=== PATIENT | female | born 1960 | race Caucasian/White ===

== ENCOUNTER 2019-11-05 08:40 | Observation (INO) | payer OTHER ==
[2019-11-05] MEDS ORDERED: Albuterol/Ipratropium 3.0-0.5 MG/3 ML Neb Soln NEB ONE ×3 (08:51→09:45)
[2019-11-05] MEDS ORDERED: Magnesium Sulfate/Water 2 GM in Premix Bag 1 BAG IV ONE (09:03)
[2019-11-05] MEDS ORDERED: methylPREDNISolone Sodium Succinate 125 MG/2 ML SDV IVPUSH ONE (09:04)
--- NOTE | 2019-11-05 09:18 | EDM.PDOC ---
ED HPI GENERAL MEDICAL PROBLEM - General Chief Complaint: Respiratory Problem Stated Complaint: trouble breathin Time Seen by Provider: 11/05/19 09:16 Source of Information: Reports: Patient History Limitations: Reports: No Limitations - History of Present Illness INITIAL COMMENTS - FREE TEXT/NARRATIVE: Patient is a 59-year-old history of asthma and smoking presenting with chief complaint of shortness of breath. Patient states she started feeling this yesterday. Patient states she had a fall where she struck her right side. Patient is afraid that she might have fractured her ribs. Patient reports her shortness of breath worsened today. Patient states that she used her nebulizer at home without any relief. rePorts feeling extreme chest tightness. Symptoms did not improve with nebulizer treatment at home. Pmhx: Asthma Pshx: None Family Hx: noncontributory Smoking history? Yes Etoh use? none Drug use? none In addition to that documented in the HPI above, the additional ROS was obtained : Constitutional: Denies fevers or chills Eyes: Denies vision changes ENMT: Denies sore throat CV: Per HPI Resp: Per HPI GI: Denies vomiting or diarrhea : Denies painful urination MSK: Denies recent trauma Skin: Denies new rashes Neuro: Denies new numbness or tingling or weakness Endocrine: Denies unexpected weight loss Heme: Denies bleeding disorders I have reviewed the triage vital signs Const: In moderate distress gasping for air Eyes: PERRL, no conjunctival injection HENT: NCAT, Neck supple without meningismus CV: RRR, Warm, well-perfused extremities RESP: Increased respiratory effort using accessory muscles, mild diffuse wheezes GI: soft, non-tender, non-distended, no masses MSK: No gross deformities appreciated Skin: Warm, dry. No rashes Neuro: Alert, media clerk II-XII grossly intact. Sensation and motor function of extremities grossly intact. Psych: Appropriate mood and affect Assessment and plan: Patient is a 59-year-old female with asthma exacerbation and isolated rib fracture. Patient in respiratory distress upon arrival but slightly improved after given several rounds of duo nebs, Solu-Medrol, magnesium. Patient does have noted x-ray and is still wheezing. Patient will require observation stay for management of pain as well as continued treatments of albuterol for asthma exacerbation. right ribs, arm Pain Score (Numeric/FACES): 7 - Related Data Allergies Allergy/AdvReac Type Severity Reaction Status Date / Time codeine Allergy Hives Verified 11/05/19 08:47 Home Meds: Home Meds Albuterol Sulfate [Albuterol Sulfate Hfa] 1 - 2 puff INH Q4H PRN 11/05/19 [ History] Past Medical History Respiratory History: Reports: Asthma - Past Surgical History GI Surgical History: Reports: Hernia, Abdominal Social & Family History - Family History Family Medical History: Noncontributory - Tobacco Use Smoking Status *Q: Current Every Day Smoker Years of Tobacco use: 20 Packs/Tins Daily: 1 - Recreational Drug Use Recreational Drug Use: No ED ROS GENERAL - Review of Systems Review Of Systems: See Below ED EXAM, GENERAL - Physical Exam Exam: See Below Course - Vital Signs Last Recorded V/S: Last Vital Signs Temp 36.8 C 11/05/19 08:41 Pulse 100 11/05/19 08:41 Resp 24 H 11/05/19 09:04 BP 149/83 H 11/05/19 08:41 Pulse Ox 94 L 11/05/19 09:04 - Orders/Labs/Meds Orders: Active Orders 24 hr Category Date Time Status RT Aerosol Therapy [RC] ASDIRECTED Care 11/05/19 09:03 Active Medication Orders Acetaminophen (Tylenol) 650 mg PO Q4H PRN PRN Reason: Pain (Mild 1-3)/fever Albuterol/Ipratropium (Duoneb 3.0-0.5 Mg/3 Ml) 3 ml NEB Q4HRRT PRN PRN Reason: Dyspnea Docusate Sodium (Colace) 100 mg PO BID PRN PRN Reason: Constipation Enoxaparin Sodium (Lovenox) 40 mg SUBCUT Q24H [facility] Guaifenesin (Mucinex) 600 mg PO TID [facility] Levofloxacin/Dextrose 750 mg/ (Premix) 150 mls @ 100 mls/hr IV Q24H [facility] Ibuprofen (Motrin) 800 mg PO Q6H PRN PRN Reason: Pain (mild 1-3) Ketorolac Tromethamine (Toradol) 15 mg IV Q6H PRN PRN Reason: Pain (moderate 4-6) Methylprednisolone Sodium Succinate (Solu-Medrol) 40 mg IVPUSH Q12H [facility] Nicotine (Habitrol) 21 mg TRDERM DAILY PRN PRN Reason: Other Ondansetron HCl (Zofran Odt) 4 mg PO Q4H PRN PRN Reason: nausea, able to take PO Ondansetron HCl (Zofran) 4 mg IVPUSH Q4H PRN PRN Reason: Nausea Polyethylene Glycol (Miralax) 17 gm PO DAILY PRN PRN Reason: Constipation Labs: Laboratory Tests 11/05/19 11/05/19 11/05/19 Range/Units 08:48 08:48 08:48 WBC 11.91 H (4.0-11.0) K/uL RBC 5.23 (4.30-5.90) M/uL Hgb 16.0 (12.0-16.0) g/dL Hct 47.1 H (36.0-46.0) % MCV 90.1 (80.0-98.0) fL MCH 30.6 (27.0-32.0) pg MCHC 34.0 (31.0-37.0) g/dL RDW Std Deviation 42.5 (28.0-62.0) fl RDW Coeff of Aubrey 13 (11.0-15.0) % Plt Count 254 (150-400) K/uL MPV 10.00 (7.40-12.00) fL Neut % (Auto) 78.8 (48.0-80.0) % Lymph % (Auto) 9.5 L (16.0-40.0) % [place] % (Auto) 10.4 (0.0-15.0) % Eos % (Auto) 1.0 (0.0-7.0) % Baso % (Auto) 0.3 (0.0-1.5) % Neut # (Auto) 9.4 H (1.4-5.7) K/uL Lymph # (Auto) 1.1 (0.6-2.4) K/uL [place] # (Auto) 1.2 H (0.0-0.8) K/uL Eos # (Auto) 0.1 (0.0-0.7) K/uL Baso # (Auto) 0.0 (0.0-0.1) K/uL Nucleated RBC % 0.0 /100WBC Nucleated RBCs # 0 K/uL D-Dimer, Quantitative 0.25 (0.0-0.50) mg/L FEU Sodium 141 (136-145) mmol/L Potassium 4.2 (3.5-5.1) mmol/L Chloride 102 (98-107) mmol/L Carbon Dioxide 27.5 (21.0-32.0) mmol/L BUN 12 (7.0-18.0) mg/dL Creatinine 0.6 (0.6-1.0) mg/dL Est Cr Clr Drug Dosing 100.60 mL/min Estimated GFR (MDRD) > 60.0 ml/min Glucose 117 H (74-106) mg/dL Calcium 9.6 (8.5-10.1) mg/dL Total Bilirubin 0.5 (0.2-1.0) mg/dL AST 16 (15-37) IU/L ALT 28 (14-63) IU/L Alkaline Phosphatase 83 (46-116) U/L Troponin I < 0.050 (0.000-0.056) ng/mL B-Natriuretic Peptide (<100) PG/ML Total Protein 8.3 H (6.4-8.2) g/dL Albumin 4.1 (3.4-5.0) g/dL Globulin 4.2 H (2.6-4.0) g/dL Albumin/Globulin Ratio 1.0 (0.9-1.6) 11/05/19 Range/Units 08:48 WBC (4.0-11.0) K/uL RBC (4.30-5.90) M/uL Hgb (12.0-16.0) g/dL Hct (36.0-46.0) % MCV (80.0-98.0) fL MCH (27.0-32.0) pg MCHC (31.0-37.0) g/dL RDW Std Deviation (28.0-62.0) fl RDW Coeff of Aubrey (11.0-15.0) % Plt Count (150-400) K/uL MPV (7.40-12.00) fL Neut % (Auto) (48.0-80.0) % Lymph % (Auto) (16.0-40.0) % [place] % (Auto) (0.0-15.0) % Eos % (Auto) (0.0-7.0) % Baso % (Auto) (0.0-1.5) % Neut # (Auto) (1.4-5.7) K/uL Lymph # (Auto) (0.6-2.4) K/uL [place] # (Auto) (0.0-0.8) K/uL Eos # (Auto) (0.0-0.7) K/uL Baso # (Auto) (0.0-0.1) K/uL Nucleated RBC % /100WBC Nucleated RBCs # K/uL D-Dimer, Quantitative (0.0-0.50) mg/L FEU Sodium (136-145) mmol/L Potassium (3.5-5.1) mmol/L Chloride (98-107) mmol/L Carbon Dioxide (21.0-32.0) mmol/L BUN (7.0-18.0) mg/dL Creatinine (0.6-1.0) mg/dL Est Cr Clr Drug Dosing mL/min Estimated GFR (MDRD) ml/min Glucose (74-106) mg/dL Calcium (8.5-10.1) mg/dL Total Bilirubin (0.2-1.0) mg/dL AST (15-37) IU/L ALT (14-63) IU/L Alkaline Phosphatase (46-116) U/L Troponin I (0.000-0.056) ng/mL B-Natriuretic Peptide 44 (<100) PG/ML Total Protein (6.4-8.2) g/dL Albumin (3.4-5.0) g/dL Globulin (2.6-4.0) g/dL Albumin/Globulin Ratio (0.9-1.6) Meds: Medications Generic Name Dose Route Start Last Admin Trade Name Freq PRN Reason Stop Dose Admin Acetaminophen 650 mg 11/05/19 11:30 Tylenol PO Q4H PRN Pain (Mild 1-3)/fever Albuterol/Ipratropium 3 ml 11/05/19 11:38 Duoneb 3.0-0.5 Mg/3 Ml NEB Q4HRRT PRN Dyspnea Docusate Sodium 100 mg 11/05/19 11:30 Colace PO BID PRN Constipation Enoxaparin Sodium 40 mg 11/05/19 11:30 Lovenox SUBCUT Q24H [facility] Guaifenesin 600 mg 11/05/19 14:00 Mucinex PO TID [facility] Levofloxacin/Dextrose 750 mg/ 150 mls @ 100 mls/hr 11/05/19 11:45 Premix IV Q24H [facility] Ibuprofen 800 mg 11/05/19 11:30 Motrin PO Q6H PRN Pain (mild 1-3) Ketorolac Tromethamine 15 mg 11/05/19 11:30 Toradol IV Q6H PRN Pain (moderate 4-6) Methylprednisolone Sodium Succinate 40 mg 11/05/19 21:00 Solu-Medrol IVPUSH Q12H [facility] Nicotine 21 mg 11/05/19 11:34 Habitrol TRDERM DAILY PRN Other Ondansetron HCl 4 mg 11/05/19 11:30 Zofran Odt PO Q4H PRN nausea, able to take PO Ondansetron HCl 4 mg 11/05/19 11:30 Zofran IVPUSH Q4H PRN Nausea Polyethylene Glycol 17 gm 11/05/19 11:30 Miralax PO DAILY PRN Constipation Discontinued Medications Generic Name Dose Route Start Last Admin Trade Name Freq PRN Reason Stop Dose Admin Albuterol/Ipratropium 3 ml 11/05/19 08:51 11/05/19 08:54 Duoneb 3.0-0.5 Mg/3 Ml NEB 11/05/19 08:52 3 ml ONETIME ONE Administration Albuterol/Ipratropium 3 ml 11/05/19 09:03 11/05/19 09:05 Duoneb 3.0-0.5 Mg/3 Ml NEB 11/05/19 09:04 3 ml ONETIME ONE Administration Albuterol/Ipratropium 3 ml 11/05/19 09:45 11/05/19 09:58 Duoneb 3.0-0.5 Mg/3 Ml NEB 11/05/19 09:46 3 ml ONETIME ONE Administration Magnesium Sulfate 2 gm/ Premix 50 mls @ 50 mls/hr 11/05/19 09:03 11/05/19 09: 13 IV 11/05/19 10:02 50 mls/hr ONETIME ONE Administration Ketorolac Tromethamine 15 mg 11/05/19 11:02 11/05/19 11:43 Toradol IVPUSH 02/20/20 11:03 15 mg ONETIME ONE Administration Methylprednisolone Sodium Succinate 125 mg 11/05/19 09:04 11/05/19 09:13 Solu-Medrol IVPUSH 11/05/19 09:05 125 mg ONETIME ONE Administration Nicotine 21 mg 11/05/19 11:30 11/05/19 11:41 Habitrol TRDERM Not Given DAILY [facility] Departure - Departure Time of Disposition: 12:07 Disposition: Refer to Observation Clinical Impression: Exacerbation of asthma - Discharge Information Sepsis Event Note - Evaluation Sepsis Screening Result: No Definite Risk - Focused Exam Vital Signs: Vital Signs Temp Pulse Resp BP Pulse Ox Pulse Ox 11/05/19 09:04 24 H 94 L 11/05/19 08:54 94 L 11/05/19 08:51 94 L 11/05/19 08:41 36.8 C 100 36 H 149/83 H 89 L Date Exam was Performed: 11/05/19 Time Exam was Performed: 12:05 - My Orders Last 24 Hours: My Active Orders 11/05/19 09:03 RT Aerosol Therapy [RC] ASDIRECTED - Assessment/Plan Last 24 Hours: My Active Orders 11/05/19 09:03 RT Aerosol Therapy [RC] ASDIRECTED
[2019-11-05 09:34] LABS: BLOOD UREA NITROGEN,BUN 12 mg/dL (7.0-18.0); CARBON DIOXIDE,CO2 27.5 mmol/L (21.0-32.0); CHLORIDE,CL 102 mmol/L (98-107); GLUCOSE RANDOM 117 mg/dL (74-106); POTASSIUM,K 4.2 mmol/L (3.5-5.1); SODIUM,NA 141 mmol/L (136-145)
--- NOTE | 2019-11-05 09:35 | CR ---
Chest: Portable view of the chest was obtained. Comparison: No prior chest imaging. Heart size and mediastinum are normal. Lungs are clear. Fracture is noted within the left fifth rib posteriorly. Uncertain if this is acute or old. Please correlate with the patient's symptoms. No additional osseous abnormality is definitely appreciated. Impression: 1. Fracture within the left fifth rib posteriorly. Please correlate that patient is symptomatic to this area. 2. Nothing acute is otherwise seen on portable chest x-ray. Diagnostic code #3 This report was dictated in [place] Standard Time
[2019-11-05] MEDS ORDERED: Ketorolac 30 MG/ML SDV IVPUSH ONE (11:02)
[2019-11-05] MEDS ORDERED: Ondansetron 4 MG Tab.DIS PO PRN (11:30)
[2019-11-05] MEDS ORDERED: Polyethylene Glycol 3350 Powder 17 GM Packet PO PRN (11:30)
[2019-11-05] MEDS ORDERED: Ondansetron 4 MG/2 ML SDV IVPUSH PRN (11:30)
[2019-11-05] MEDS ORDERED: Acetaminophen 325 MG Tab PO PRN (11:30)
[2019-11-05] MEDS ORDERED: Nicotine 21 MG/24 Hr Patch TRDERM SCH (11:30)
[2019-11-05] MEDS ORDERED: Docusate Sodium 100 MG Cap PO PRN (11:30)
[2019-11-05] MEDS ORDERED: Ibuprofen 800 MG Tab PO PRN (11:30)
[2019-11-05] MEDS ORDERED: Nicotine 21 MG/24 Hr Patch TRDERM PRN (11:34)
[2019-11-05] MEDS ORDERED: Albuterol/Ipratropium 3.0-0.5 MG/3 ML Neb Soln NEB PRN (11:38)
--- NOTE | 2019-11-05 11:41 | PCM.HP.2 ---
H&P History of Present Illness - General Date of Service: 11/05/19 Admit Problem/Dx: Admission Diagnosis/Problem Admission Diagnosis/Problem Shortness of breath - History of Present Illness Initial Comments - Free Text/Narative: 59 y/o female who presented to the ER complaining of worsening shortness of breath since yesterday. States she fell at work and hit her right chest area. She has been having taking deep breaths due to right lower rib pain. Has been having productive cough. No fevers. Smokes 2 ppd. States she last had a cigarette about 2-3 days ago. No other sick contacts at home. No vomiting, abdominal pain, dysuria, diarrhea, blood in stool. In the ER, she was given Duoneb treatment, methylprednisolone. Chest xray showed left posterior 5th rib fracture. right ribs, arm Pain Score (Numeric/FACES): 7 - Related Data Allergies/Adverse Reactions: Allergies Allergy/AdvReac Type Severity Reaction Status Date / Time codeine Allergy Hives Verified 11/05/19 08:47 Home Medications: Home Meds Albuterol Sulfate [Albuterol Sulfate Hfa] 1 - 2 puff INH Q4H PRN 11/05/19 [ History] Past Medical History Respiratory History: Reports: Asthma - Past Surgical History GI Surgical History: Reports: Hernia, Abdominal Social & Family History - Family History Family Medical History: Noncontributory - Tobacco Use Smoking Status *Q: Current Every Day Smoker Years of Tobacco use: 20 Packs/Tins Daily: 1 - Recreational Drug Use Recreational Drug Use: No H&P Review of Systems - Review of Systems: Review Of Systems: Comprehensive ROS is negative, except as noted in HPI. Exam - Exam Exam: See Below - Vital Signs Vital Signs: Last Vital Signs Temp 36.8 C 11/05/19 08:41 Pulse 100 11/05/19 08:41 Resp 24 H 11/05/19 09:04 BP 149/83 H 11/05/19 08:41 Pulse Ox 94 L 11/05/19 09:04 Weight: 90.718 kg - Exam Quality Assessment: Supplemental Oxygen General: Alert, Oriented, Cooperative HEENT: Other (dry oral mucosa) Lungs: Other (barrel chested, prolonged inspiratory and expiratory phases. no wheesing. rhonchi bilaterally.) Cardiovascular: Regular Rate, Regular Rhythm Back Exam: Other (tenderness on posterior back area on left and right sided ribs. No contussion seen.) Skin: Warm Neuro Extensive - Mental Status: Alert, Oriented x3 - Patient Data Lab Results Last 24 hrs: Laboratory Results - last 24 hr 11/05/19 11/05/19 11/05/19 Range/Units 08:48 08:48 08:48 WBC 11.91 H (4.0-11.0) K/uL RBC 5.23 (4.30-5.90) M/uL Hgb 16.0 (12.0-16.0) g/dL Hct 47.1 H (36.0-46.0) % MCV 90.1 (80.0-98.0) fL MCH 30.6 (27.0-32.0) pg MCHC 34.0 (31.0-37.0) g/dL RDW Std Deviation 42.5 (28.0-62.0) fl RDW Coeff of Aubrey 13 (11.0-15.0) % Plt Count 254 (150-400) K/uL MPV 10.00 (7.40-12.00) fL Neut % (Auto) 78.8 (48.0-80.0) % Lymph % (Auto) 9.5 L (16.0-40.0) % [place] % (Auto) 10.4 (0.0-15.0) % Eos % (Auto) 1.0 (0.0-7.0) % Baso % (Auto) 0.3 (0.0-1.5) % Neut # (Auto) 9.4 H (1.4-5.7) K/uL Lymph # (Auto) 1.1 (0.6-2.4) K/uL [place] # (Auto) 1.2 H (0.0-0.8) K/uL Eos # (Auto) 0.1 (0.0-0.7) K/uL Baso # (Auto) 0.0 (0.0-0.1) K/uL Nucleated RBC % 0.0 /100WBC Nucleated RBCs # 0 K/uL D-Dimer, Quantitative 0.25 (0.0-0.50) mg/L FEU Sodium 141 (136-145) mmol/L Potassium 4.2 (3.5-5.1) mmol/L Chloride 102 (98-107) mmol/L Carbon Dioxide 27.5 (21.0-32.0) mmol/L BUN 12 (7.0-18.0) mg/dL Creatinine 0.6 (0.6-1.0) mg/dL Est Cr Clr Drug Dosing 100.60 mL/min Estimated GFR (MDRD) > 60.0 ml/min Glucose 117 H (74-106) mg/dL Calcium 9.6 (8.5-10.1) mg/dL Total Bilirubin 0.5 (0.2-1.0) mg/dL AST 16 (15-37) IU/L ALT 28 (14-63) IU/L Alkaline Phosphatase 83 (46-116) U/L Troponin I < 0.050 (0.000-0.056) ng/mL B-Natriuretic Peptide (<100) PG/ML Total Protein 8.3 H (6.4-8.2) g/dL Albumin 4.1 (3.4-5.0) g/dL Globulin 4.2 H (2.6-4.0) g/dL Albumin/Globulin Ratio 1.0 (0.9-1.6) 11/05/19 Range/Units 08:48 WBC (4.0-11.0) K/uL RBC (4.30-5.90) M/uL Hgb (12.0-16.0) g/dL Hct (36.0-46.0) % MCV (80.0-98.0) fL MCH (27.0-32.0) pg MCHC (31.0-37.0) g/dL RDW Std Deviation (28.0-62.0) fl RDW Coeff of Aubrey (11.0-15.0) % Plt Count (150-400) K/uL MPV (7.40-12.00) fL Neut % (Auto) (48.0-80.0) % Lymph % (Auto) (16.0-40.0) % [place] % (Auto) (0.0-15.0) % Eos % (Auto) (0.0-7.0) % Baso % (Auto) (0.0-1.5) % Neut # (Auto) (1.4-5.7) K/uL Lymph # (Auto) (0.6-2.4) K/uL [place] # (Auto) (0.0-0.8) K/uL Eos # (Auto) (0.0-0.7) K/uL Baso # (Auto) (0.0-0.1) K/uL Nucleated RBC % /100WBC Nucleated RBCs # K/uL D-Dimer, Quantitative (0.0-0.50) mg/L FEU Sodium (136-145) mmol/L Potassium (3.5-5.1) mmol/L Chloride (98-107) mmol/L Carbon Dioxide (21.0-32.0) mmol/L BUN (7.0-18.0) mg/dL Creatinine (0.6-1.0) mg/dL Est Cr Clr Drug Dosing mL/min Estimated GFR (MDRD) ml/min Glucose (74-106) mg/dL Calcium (8.5-10.1) mg/dL Total Bilirubin (0.2-1.0) mg/dL AST (15-37) IU/L ALT (14-63) IU/L Alkaline Phosphatase (46-116) U/L Troponin I (0.000-0.056) ng/mL B-Natriuretic Peptide 44 (<100) PG/ML Total Protein (6.4-8.2) g/dL Albumin (3.4-5.0) g/dL Globulin (2.6-4.0) g/dL Albumin/Globulin Ratio (0.9-1.6) Result Diagrams: 11/05/19 08:48 11/05/19 08:48 Sepsis Event Note - Evaluation Sepsis Screening Result: No Definite Risk - Focused Exam Vital Signs: Vital Signs Temp Pulse Resp BP Pulse Ox Pulse Ox 11/05/19 09:04 24 H 94 L 11/05/19 08:54 94 L 11/05/19 08:51 94 L 11/05/19 08:41 36.8 C 100 36 H 149/83 H 89 L Date Exam was Performed: 11/05/19 Time Exam was Performed: 11:41 Problem List Initiated/Reviewed/Updated: Yes Orders Last 24hrs: Active Orders 24 hr Category Date Time Status Admission Status [Patient Status] [ADT] Stat ADT 11/05/19 11:02 Active Intake and Output [RC] QSHIFT Care 11/05/19 11:30 Active Oxygen Therapy [RC] PRN Care 11/05/19 11:30 Active RT Aerosol Therapy [RC] ASDIRECTED Care 11/05/19 09:03 Active RT Aerosol Therapy [RC] ASDIRECTED Care 11/05/19 11:38 Active Up ad Angelique [RC] ASDIRECTED Care 11/05/19 11:30 Active VTE/DVT Education [RC] PER UNIT ROUTINE Care 11/05/19 11:30 Active Vital Signs [RC] Q4H Care 11/05/19 11:30 Active Regular Diet [DIET] Diet 11/05/19 Lunch Active INFLUENZA A+B AG SCREEN [RM] Routine Lab 11/05/19 11:39 Ordered Acetaminophen [Tylenol] Med 11/05/19 11:30 Active 650 mg PO Q4H PRN Albuterol/Ipratropium [DuoNeb 3.0-0.5 MG/3 ML] Med 11/05/19 11:38 Active 3 ml NEB Q4HRRT PRN Docusate Sodium [Colace] Med 11/05/19 11:30 Active 100 mg PO BID PRN Enoxaparin [Lovenox] Med 11/05/19 11:30 Active 40 mg SUBCUT Q24H Ibuprofen [Motrin] Med 11/05/19 11:30 Active 800 mg PO Q6H PRN Ketorolac [Toradol] Med 11/05/19 11:30 Active 15 mg IV Q6H PRN Levofloxacin/Dextrose 5%-Water [Levaquin in D5W 750 MG/ Med 11/05/19 11:45 Active 150 ML] 750 mg Premix Bag 1 bag IV Q24H Nicotine [Habitrol] Med 11/05/19 11:34 Active 21 mg TRDERM DAILY PRN Ondansetron [Zofran ODT] Med 11/05/19 11:30 Active 4 mg PO Q4H PRN Ondansetron [Zofran] Med 11/05/19 11:30 Active 4 mg IVPUSH Q4H PRN guaiFENesin [Mucinex] Med 11/05/19 14:00 Active 600 mg PO TID methylPREDNISolone Sod Succ [Solu-MEDROL] Med 11/05/19 21:00 Active 40 mg IVPUSH Q12H polyethylene glycoL 3350 [MiraLAX] Med 11/05/19 11:30 Active 17 gm PO DAILY PRN Resuscitation Status Routine Resus Stat 11/05/19 11:30 Ordered Medication Orders Acetaminophen (Tylenol) 650 mg PO Q4H PRN PRN Reason: Pain (Mild 1-3)/fever Albuterol/Ipratropium (Duoneb 3.0-0.5 Mg/3 Ml) 3 ml NEB Q4HRRT PRN PRN Reason: Dyspnea Docusate Sodium (Colace) 100 mg PO BID PRN PRN Reason: Constipation Enoxaparin Sodium (Lovenox) 40 mg SUBCUT Q24H [facility] Guaifenesin (Mucinex) 600 mg PO TID [facility] Levofloxacin/Dextrose 750 mg/ (Premix) 150 mls @ 100 mls/hr IV Q24H [facility] Ibuprofen (Motrin) 800 mg PO Q6H PRN PRN Reason: Pain (mild 1-3) Ketorolac Tromethamine (Toradol) 15 mg IV Q6H PRN PRN Reason: Pain (moderate 4-6) Methylprednisolone Sodium Succinate (Solu-Medrol) 40 mg IVPUSH Q12H [facility] Nicotine (Habitrol) 21 mg TRDERM DAILY PRN PRN Reason: Other Ondansetron HCl (Zofran Odt) 4 mg PO Q4H PRN PRN Reason: nausea, able to take PO Ondansetron HCl (Zofran) 4 mg IVPUSH Q4H PRN PRN Reason: Nausea Polyethylene Glycol (Miralax) 17 gm PO DAILY PRN PRN Reason: Constipation Assessment/Plan Comment:: A: 1. Acute hypoxic respiratory failure, likely 2/2 to COPD exacerbation. 2. Pleuritic chest pain 3. Tobacco abuse P: 1. Will treat for acute COPD exacerbation with methylprednisolone, Levaquin and Duonebs PRN. Will check influenza. Pain control for pleurisy, left rib fracture. Nicotine patch PRN. Dispo: 1-2 days.
[2019-11-05] MEDS: Enoxaparin 40 MG/0.4 ML Syringe SUBCUT SCH (12:53)
[2019-11-05] MEDS: Levofloxacin/Dextrose 5%-Water 750 MG in Premix Bag 1 BAG IV SCH (13:01)
[2019-11-05] MEDS: guaiFENesin 600 MG Tab.ER PO SCH ×2 (14:09→21:05)
[2019-11-05] MEDS: Ketorolac 30 MG/ML SDV IV PRN ×2 (17:35→23:56)
[2019-11-05] MEDS: methylPREDNISolone Sodium Succinate 40 MG/1 ML SDV IVPUSH SCH (20:57)
[2019-11-06] MEDS: guaiFENesin 600 MG Tab.ER PO SCH (06:35)
[2019-11-06] MEDS: Ketorolac 30 MG/ML SDV IV PRN ×2 (06:39→12:24)
[2019-11-06 06:49] LABS: BLOOD UREA NITROGEN,BUN 19 mg/dL (7.0-18.0); CARBON DIOXIDE,CO2 26.3 mmol/L (21.0-32.0); CHLORIDE,CL 103 mmol/L (98-107); GLUCOSE RANDOM 193 mg/dL (74-106); POTASSIUM,K 4.3 mmol/L (3.5-5.1); SODIUM,NA 140 mmol/L (136-145)
[2019-11-06] MEDS: methylPREDNISolone Sodium Succinate 40 MG/1 ML SDV IVPUSH SCH (09:19)
[2019-11-06] MEDS: Enoxaparin 40 MG/0.4 ML Syringe SUBCUT SCH (11:19)
[2019-11-06] MEDS: Levofloxacin/Dextrose 5%-Water 750 MG in Premix Bag 1 BAG IV SCH (11:22)
--- NOTE | 2019-11-06 15:07 | PCM.DCSUM1 ---
Discharge Summary - Hospital Course Free Text/Narrative:: 59 y/o female who presented to the ER complaining of worsening shortness of breath. She was admitted for suspected acute COPD exacerbation. She was started on Levaquin IV, methylprednisolone and Duoneb treatments. In addition, she was found to have a left posterior 5th rib fracture. She did relatively well during this hospitalization. She was discharged home the following day on Levaquin, prednisone, albuterol and tramadol for pain control. In addition, she was prescribed home oxygen since she needed oxygen with ambulation. She was advised to follow-up with her PCP and abstain from tobacco. She will need outpatient PFTs to further evaluate her pulmonary function due to history of tobacco use. - Discharge Data Discharge Date: 11/06/19 Discharge Disposition: Home, Self-Care 01 Condition: Good - Referral to Home Health Primary Care Physician: PCP None - Patient Instructions Diet: Regular Diet as Tolerated Activity: As Tolerated Notify Provider of: Fever, Increased Pain, Swelling and Redness, Nausea and/or Vomiting - Discharge Plan *PRESCRIPTION DRUG MONITORING PROGRAM REVIEWED*: Not Applicable *COPY OF PRESCRIPTION DRUG MONITORING REPORT IN PATIENT SHERIE: Not Applicable Prescriptions/Med Rec: Albuterol Sulfate [Albuterol Sulfate Hfa] 8.5 gm IH Q4H PRN #1 hfa.aer.ad PRN Reason: Wheezing Levofloxacin [Levaquin] 750 mg PO DAILY 5 Days #5 tablet Nicotine [Habitrol] 21 mg TRDERM DAILY 30 Days #30 patch predniSONE [Prednisone] 20 mg PO DAILY 5 Days #5 tablet traMADol [Ultram] 50 mg PO TID PRN #10 tablet PRN Reason: Pain Home Medications: Home Meds Albuterol Sulfate [Albuterol Sulfate Hfa] 8.5 gm IH Q4H PRN #1 hfa.aer.ad [Rx] Levofloxacin [Levaquin] 750 mg PO DAILY 5 Days #5 tablet 11/06/19 [Rx] Nicotine [Habitrol] 21 mg TRDERM DAILY 30 Days #30 patch 11/06/19 [Rx] predniSONE [Prednisone] 20 mg PO DAILY 5 Days #5 tablet 11/06/19 [Rx] traMADol [Ultram] 50 mg PO TID PRN #10 tablet 11/06/19 [Rx] Oxygen Therapy Mode: Nasal Cannula, Oxygen Conserving Oxygen Flow Rate (L/min): 1.5 Patient Handouts: Tramadol tablets, Asthma, Adult, [id number], Levofloxacin tablets, Nicotine skin patches, Prednisone tablets, Rib Fracture, [id number], Albuterol tablets or extended-release tablets Referrals: Angus Schwarz MD [Resident] - 11/19/19 2:00 pm - Discharge Summary/Plan Comment DC Time >30 min.: No - Patient Data Vitals - Most Recent: Last Vital Signs Temp 36.7 C 11/06/19 11:58 Pulse 86 11/06/19 07:00 Resp 24 H 11/06/19 11:58 BP 142/86 H 11/06/19 11:58 Pulse Ox 93 L 11/06/19 11:58 Weight - Most Recent: 97 kg I&O - Last 24 hours: Intake & Output 11/06/19 11/06/19 11/06/19 06:59 14:59 22:59 Intake Total 680 Output Total 600 Balance 80 Lab Results - Last 24 hrs: Laboratory Results - last 24 hr 11/06/19 11/06/19 Range/Units 06:16 06:16 WBC 17.77 H (4.0-11.0) K/uL RBC 4.79 (4.30-5.90) M/uL Hgb 14.2 (12.0-16.0) g/dL Hct 42.7 (36.0-46.0) % MCV 89.1 (80.0-98.0) fL MCH 29.6 (27.0-32.0) pg MCHC 33.3 (31.0-37.0) g/dL RDW Std Deviation 40.7 (28.0-62.0) fl RDW Coeff of Aubrey 13 (11.0-15.0) % Plt Count 268 (150-400) K/uL MPV 9.70 (7.40-12.00) fL Neut % (Auto) 91.0 H (48.0-80.0) % Lymph % (Auto) 4.3 L (16.0-40.0) % [place] % (Auto) 4.7 (0.0-15.0) % Eos % (Auto) 0.0 (0.0-7.0) % Baso % (Auto) 0.0 (0.0-1.5) % Neut # (Auto) 16.2 H (1.4-5.7) K/uL Lymph # (Auto) 0.8 (0.6-2.4) K/uL [place] # (Auto) 0.8 (0.0-0.8) K/uL Eos # (Auto) 0.0 (0.0-0.7) K/uL Baso # (Auto) 0.0 (0.0-0.1) K/uL Nucleated RBC % 0.0 /100WBC Nucleated RBCs # 0 K/uL Sodium 140 (136-145) mmol/L Potassium 4.3 (3.5-5.1) mmol/L Chloride 103 (98-107) mmol/L Carbon Dioxide 26.3 (21.0-32.0) mmol/L BUN 19 H (7.0-18.0) mg/dL Creatinine 0.6 (0.6-1.0) mg/dL Est Cr Clr Drug Dosing 104.35 mL/min Estimated GFR (MDRD) > 60.0 ml/min Glucose 193 H (74-106) mg/dL Calcium 9.2 (8.5-10.1) mg/dL Total Bilirubin 0.4 (0.2-1.0) mg/dL AST 9 L (15-37) IU/L ALT 23 (14-63) IU/L Alkaline Phosphatase 68 (46-116) U/L Total Protein 7.2 (6.4-8.2) g/dL Albumin 3.4 (3.4-5.0) g/dL Globulin 3.8 (2.6-4.0) g/dL Albumin/Globulin Ratio 0.9 (0.9-1.6) NONA Results - Last 24 hrs: Microbiology 11/05/19 12:40 Influenza Type A Antigen Screen - Final Nasopharyngeal Swab NEGATIVE INFLUENZA A VIRUS AG REFERENCE RANGE: NEGATIVE Influenza Type B Antigen Screen - Final NEGATIVE INFLUENZA B VIRUS AG REFERENCE RANGE: NEGATIVE Med Orders - Current: Current Medications Acetaminophen (Tylenol) 650 mg PO Q4H PRN PRN Reason: Pain (Mild 1-3)/fever Albuterol/Ipratropium (Duoneb 3.0-0.5 Mg/3 Ml) 3 ml NEB Q4HRRT PRN PRN Reason: Dyspnea Last Admin: 11/06/19 00:01 Dose: 3 ml Docusate Sodium (Colace) 100 mg PO BID PRN PRN Reason: Constipation Enoxaparin Sodium (Lovenox) [address] [facility] Last Admin: 11/06/19 11:19 Dose: 40 mg Guaifenesin (Mucinex) [address] [facility] Last Admin: 11/06/19 06:35 Dose: 600 mg Levofloxacin/Dextrose 750 mg/ (Premix) 150 mls @ 100 mls/hr IV Q24H [facility] Last Admin: 11/06/19 11:22 Dose: 100 mls/hr Ibuprofen (Motrin) 800 mg PO Q6H PRN PRN Reason: Pain (mild 1-3) Ketorolac Tromethamine (Toradol) 15 mg IV Q6H PRN PRN Reason: Pain (moderate 4-6) Last Admin: 11/06/19 12:24 Dose: 15 mg Methylprednisolone Sodium Succinate (Solu-Medrol) [address] [facility] Last Admin: 11/06/19 09:19 Dose: 40 mg Nicotine (Habitrol) 21 mg TRDERM DAILY PRN PRN Reason: Other Last Admin: 11/05/19 14:10 Dose: 21 mg Ondansetron HCl (Zofran Odt) 4 mg PO Q4H PRN PRN Reason: nausea, able to take PO Ondansetron HCl (Zofran) 4 mg IVPUSH Q4H PRN PRN Reason: Nausea Polyethylene Glycol (Miralax) 17 gm PO DAILY PRN PRN Reason: Constipation Discontinued Medications Albuterol/Ipratropium (Duoneb 3.0-0.5 Mg/3 Ml) 3 ml NEB ONETIME ONE Stop: 11/05/19 08:52 Last Admin: 11/05/19 08:54 Dose: 3 ml Albuterol/Ipratropium (Duoneb 3.0-0.5 Mg/3 Ml) 3 ml NEB ONETIME ONE Stop: 11/05/19 09:04 Last Admin: 11/05/19 09:05 Dose: 3 ml Albuterol/Ipratropium (Duoneb 3.0-0.5 Mg/3 Ml) 3 ml NEB ONETIME ONE Stop: 11/05/19 09:46 Last Admin: 11/05/19 09:58 Dose: 3 ml Magnesium Sulfate 2 gm/ Premix 50 mls @ 50 mls/hr IV ONETIME ONE Stop: 11/05/19 10:02 Last Admin: 11/05/19 09:13 Dose: 50 mls/hr Ketorolac Tromethamine (Toradol) 15 mg IVPUSH ONETIME ONE Stop: 11/05/19 11:03 Last Admin: 11/05/19 11:43 Dose: 15 mg Methylprednisolone Sodium Succinate (Solu-Medrol) 125 mg IVPUSH ONETIME ONE Stop: 11/05/19 09:05 Last Admin: 11/05/19 09:13 Dose: 125 mg Nicotine (Habitrol) [address] [facility] Last Admin: 11/05/19 11:41 Dose: Not Given
== END 2019-11-06 14:00 | disposition home or self-care (01) ==
LOC: MW.ED 08:40 → MW.MS 11:02
PROVIDERS: ADMIT Internal Medicine; ATTEND Internal Medicine
DX: J96.01 Acute respiratory failure with hypoxia (principal); J44.1 Chronic obstructive pulmonary disease with (acute) exacerbation; R07.81 Pleurodynia; S22.32XA Fracture of one rib, left side, initial encounter for closed fracture; F17.210 Nicotine dependence, cigarettes, uncomplicated; Z88.5 Allergy status to narcotic agent; Z99.81 Dependence on supplemental oxygen; Z79.899 Other long term (current) drug therapy; W19.XXXA Unspecified fall, initial encounter; Y99.0 Civilian activity done for income or pay
CPT/HCPCS: 36415; 71045; 80053; 83036; 83880; 84443; 84484; 85025; 85379; 87804; 93005; 94640; 96365; 96367; 96372; 96375; 96376; 99285; A9270; G0378; J1650; J1885; J1956; J2920; J2930; J3475; J7620-GY

== ENCOUNTER 2021-01-17 06:43 | Day surgery (SDC) | payer MEDICAID ==
[~2021-01-17 06:43] MED LIST: Lactated Ringers 1,000 ML IV SCH; Sodium Chloride 0.9% 10 ML SDV IV PRN; Sodium Chloride 0.9% 10 ML Syringe FLUSH PRN; Sodium Chloride 0.9% 2.5 ML Syringe FLUSH PRN; ceFAZolin 2 GM in Premix Bag 1 BAG IV ONE
[2021-01-17] MEDS ORDERED: Ondansetron 4 MG/2 ML SDV ONE (07:19)
[2021-01-17] MEDS ORDERED: Lidocaine 2% 5 ML SDV ONE (07:19)
[2021-01-17] MEDS ORDERED: Propofol 200 MG/20 ML SDV ONE ×2 (07:20→08:16)
[2021-01-17] MEDS ORDERED: fentaNYL 100 MCG/2 ML SDV ONE (07:20)
[2021-01-17] MEDS ORDERED: Midazolam 1 MG/ML 2 ML SDV ONE (07:20)
--- NOTE | 2021-01-17 07:23 | PCM.PREANE ---
Preanesthetic Assessment - Anesthesia/Transfusion/Family Hx Anesthesia History: Prior Anesthesia Without Reaction Family History of Anesthesia Reaction: No Transfusion History: No Prior Transfusion(s) Intubation History: Unknown - Review of Systems General: No Symptoms Pulmonary: No Symptoms Cardiovascular: No Symptoms Gastrointestinal: No Symptoms Neurological: No Symptoms Other: Reports: None - Physical Assessment NPO Status Date: 01/17/21 NPO Status Time: 00:01 Vital Signs: Last Vital Signs Temp 98.2 F 01/17/21 06:50 Pulse 82 01/17/21 06:50 Resp 15 01/17/21 06:50 BP 143/86 H 01/17/21 06:50 Pulse Ox 95 01/17/21 06:50 Height: 5 ft 8 in Weight: 215 lb ASA Class: 2 Mental Status: Alert & Oriented x3 Airway Class: Mallampati = 2 Dentition: Reports: Normal Dentition, Missing Tooth/Teeth ROM/Head Extension: Limited/Partial Lungs: Clear to Auscultation, Normal Respiratory Effort Cardiovascular: Regular Rate, Regular Rhythm - Allergies Allergies/Adverse Reactions: Allergies Allergy/AdvReac Type Severity Reaction Status Date / Time codeine Allergy Rash Verified 01/11/21 12:11 - Anesthesia Plan Pre-Op Medication Ordered: None - Acknowledgements Anesthesia Type Planned: General Anesthesia Pt an Appropriate Candidate for the Planned Anesthesia: Yes Alternatives and Risks of Anesthesia Discussed w Pt/Guardian: Yes Pt/Guardian Understands and Agrees with Anesthesia Plan: Yes Additional Comments: npo after mn edentulous hx met abuse tob 1 ppd etoh none obesity bmi 33 cervical CA copd daily inhalers NEWHALEN par no questions no cv problems PreAnesthesia Questionnaire HEENT History: Reports: Hard of Hearing, Other (See Below) Other HEENT History: uses reading glasses, has upper and lower dentures, may have hearing aides but doesn't wear them Cardiovascular History: Reports: Other (See Below) Other Cardiovascular History: hx of rheumatic fever as a child- ? murmur Respiratory History: Reports: COPD Other Respiratory History: recently started inhalers Gastrointestinal History: Reports: None Other Gastrointestinal History: occasional heartburn- no medications Genitourinary History: Reports: None GENERAL TECHNICIAN History: Reports: Musculoskeletal History: Reports: None Other Musculoskeletal History: hx of fx rib and right elbow (not treated) Neurological History: Reports: None Psychiatric History: Reports: None Endocrine/Metabolic History: Reports: Obesity/BMI 30+ Hematologic History: Reports: None Immunologic History: Reports: None Oncologic (Cancer) History: Reports: Cervix Dermatologic History: Reports: None - Infectious Disease History Infectious Disease History: Reports: Chicken Pox, Measles - Past Surgical History Head Surgeries/Procedures: Reports: None Cardiovascular Surgical History: Reports: None Respiratory Surgical History: Reports: None GI Surgical History: Reports: Hernia, Abdominal Other GI Surgeries/Procedures: hx of Ventral Hernia repair Female Surgical History: Reports: Tubal Ligation Neurological Surgical History: Reports: None Musculoskeletal Surgical History: Reports: None Oncologic Surgical History: Reports: None - SUBSTANCE USE Tobacco Use Status *Q: Current Every Day Tobacco User Tobacco Use Within Last Twelve Months: Cigarettes Recreational Drug Use History: Yes Recreational Drug Type: Reports: Methamphetamine - HOME MEDS Home Medications: Home Meds Albuterol Sulfate [Albuterol Sulfate HFA] 1 puff INH ASDIRECTED PRN 01/11/21 [History] Albuterol/Ipratropium [Combivent Respimat] 1 puff INH ASDIRECTED 01/11/21 [History] - CURRENT (IN HOUSE) MEDS Current Meds: Current Medications Lactated Ringer's (Ringers, Lactated) 1,000 mls @ 125 mls/hr IV ASDIRECTED WILIAN Last Admin: 01/17/21 07:06 Dose: 125 mls/hr Documented by: Sodium Chloride (Sodium Chloride 0.9% 2.5 Ml Syringe) 2.5 ml FLUSH ASDIRECTED PRN PRN Reason: Keep Vein Open Sodium Chloride (Sodium Chloride 0.9% 10 Ml Sdv) 10 ml IV ASDIRECTED PRN PRN Reason: IV Use Sodium Chloride (Sodium Chloride 0.9% 10 Ml Syringe) 10 ml FLUSH ASDIRECTED PRN PRN Reason: Keep Vein Open Discontinued Medications Cefazolin Sodium/Dextrose 2 gm (/ Premix) 50 mls @ 100 mls/hr IV ONETIME ONE Stop: 01/16/21 10:27
[2021-01-17] MEDS ORDERED: Bupivacaine 0.5% 10 ML SDV ONE (07:33)
[2021-01-17] MEDS ORDERED: Iopamidol 408 MG/ML 20 ML SDV ONE (07:34)
[2021-01-17] MEDS ORDERED: Lidocaine 1% 20 ML MDV ONE (07:34)
[2021-01-17] MEDS ORDERED: Heparin Sodium 100 Units/ML 3 ML Syringe ONE (07:34)
[2021-01-17] MEDS ORDERED: fentaNYL 100 MCG/2 ML SDV IVPUSH PRN (08:21)
[2021-01-17] MEDS ORDERED: Ketorolac 30 MG/ML SDV ONE (08:33)
[2021-01-17] MEDS ORDERED: Octyl 2-Cyanoacrylate 1 Tube ONE (08:44)
--- NOTE | 2021-01-17 09:11 | PCM.OPNOTE ---
- General Post-Op/Procedure Note Date of Surgery/Procedure: 01/17/21 Operative Procedure(s): Right internal jugular port a cath placement Findings: RIJ port Pre Op Diagnosis: Cervical cancer Post-Op Diagnosis: Cervical cancer Anesthesia Technique: General LMA Primary Surgeon: Roya Chin Fluid Replacement, Intraop: 1,000 EBL in mLs: 5 Condition: Good Free Text/Narrative:: Intake & Output 01/16/21 01/17/21 01/17/21 22:59 06:59 14:59 Intake Total 1100 Balance 1100
--- NOTE | 2021-01-17 09:18 | PCM.POSTAN ---
POST ANESTHESIA ASSESSMENT - MENTAL STATUS Mental Status: Alert (no anesthetic problems), Oriented - VITAL SIGNS Vital Signs: Last Vital Signs Temp 98.1 F 01/17/21 08:55 Pulse 77 01/17/21 09:12 Resp 14 01/17/21 09:12 BP 131/77 01/17/21 09:12 Pulse Ox 97 01/17/21 09:12 - RESPIRATORY Respiratory Status: Respiratory Rate WNL, Airway Patent, O2 Saturation Stable - CARDIOVASCULAR CV Status: Pulse Rate WNL, Blood Pressure Stable - GASTROINTESTINAL GI Status: No Symptoms - POST OP HYDRATION Hydration Status: Adequate & Stable
[2021-01-17] MEDS ORDERED: Acetaminophen/oxyCODONE 325-5 MG Tab PO ONE (09:35)
[2021-01-17] MEDS ORDERED: Acetaminophen/oxyCODONE 325-5 MG Tab ONE (09:39)
--- NOTE | 2021-01-17 10:05 | PCM48HPAN ---
Post Anesthesia Note - EVALUATION WITHIN 48HRS OF ANESTHETIC Vital Signs in Normal Range: Yes Patient Participated in Evaluation: Yes Respiratory Function Stable: Yes Airway Patent: Yes Cardiovascular Function Stable: Yes Hydration Status Stable: Yes Pain Control Satisfactory: Yes Nausea and Vomiting Control Satisfactory: Yes Mental Status Recovered: Yes Vital Signs: Last Vital Signs Temp 98.2 F 01/17/21 09:15 Pulse 77 01/17/21 09:30 Resp 15 01/17/21 09:30 BP 127/85 01/17/21 09:30 Pulse Ox 96 01/17/21 09:30
--- NOTE | 2021-01-17 10:07 | CR ---
Indication: Port-A-Cath Comparison: Two-view chest January 09, 2021 Technique: Single AP view chest Findings: There is hyperinflation and chronic interstitial change. There is interval placement of right-sided Port-A-Cath with the tip in the superior vena cava. There is mildly increased interstitial markings likely representing pulmonary vascular congestion. The cardiac silhouette is stably prominent. The bony thorax is grossly intact. Impression: Hyperinflation and chronic interstitial changes with mildly increased interstitial markings likely representing pulmonary edema. Interval placement of right-sided Port-A-Cath in satisfactory position. Dictated by Xavier Vines MD @ 01/17/2021 10:06:[address] Xavier Vines @ Jan 17 2021 10:06AM
--- NOTE | 2021-01-17 12:16 | OR ---
SURGEON: ROYA CHIN MD DATE OF PROCEDURE: 01/17/2021 PREOPERATIVE DIAGNOSIS: Cervical cancer. POSTOPERATIVE DIAGNOSIS: Cervical cancer. PROCEDURE PERFORMED: Right internal jugular Port-A-Cath placement. ANESTHESIA: General LMA. PRIMARY SURGEON: Roya Chin MD FLUIDS: 1000 mL crystalloid. ESTIMATED BLOOD LOSS: 5 mL. FINDINGS: Right internal jugular port placed without complications. COMPLICATIONS: None. INDICATIONS: The patient is a 60-year-old female who presented to clinic in need of a Port-A- Cath due to recent diagnosis of cervical cancer. The patient and I discussed the procedure, expected perioperative course, and the risks. The patient verbalized understanding and wishes to proceed. PROCEDURE IN DETAIL: The patient was brought in to the OR and placed on the OR table in supine position. A time-out was completed verifying the patient's name, age, date of , allergies, and procedure to be performed. General LMA anesthesia was induced. A roll was placed on the patient's shoulders and both arms were tucked to the patient's side. The neck and chest were then prepped and draped in usual standard fashion. Using an ultrasound, I identified the vascular anatomy of the right side of the neck. I could clearly see the right internal jugular vein and associated right carotid artery. I anesthetized the area overlying this with 0.5% Marcaine plain and 1% lidocaine plain. I anesthetized the chest wall and tunneling tract with the same. The patient was placed into Trendelenburg position. Using ultrasound guidance, I placed a guide needle into the right internal jugular vein. A good return of venous blood was noted. A guidewire was placed down this needle into the vein and down into the vena cava. The guide needle was removed. Placement of the guidewire into the vena cava was confirmed using intraoperative fluoroscopy. The guidewire was secured to the drapes and I turned my attention to the right chest wall. A 15-blade was used to make a 4 cm incision two fingerbreadths below the right lateral clavicle. Cautery was used to dissect down to the subcutaneous fat layer. A subcutaneous pocket was made using electrocautery. I then tunneled my catheter tubing from the anterior chest wall site up to the guidewire insertion site on the neck. A vascular sheath and dilator were placed over the guidewire. Using fluoroscopy, I then dilated up my vascular tract. The dilator and guidewire were removed leaving the vascular sheath in place. The catheter tubing was placed down the sheath and advanced into the vena cava. The vascular sheath was peeled away. Fluoroscopy was used to guide the catheter tubing into the superior vena cava. The catheter tubing was accessed and had good return of venous blood. It was flushed with injectable saline. I then turned the catheter tubing and placed it on the Port-A-Cath device. The Port-A-Cath device was accessed and there was a good return of venous blood. It was locked with 3 mL of heparinized saline. It was placed into the chest wall cavity and secured on either side with interrupted 2-0 Prolene sutures. The chest wall pocket was closed with interrupted 3-0 Vicryl sutures in the subcutaneous fat layer. The skin was closed with a running 4-0 Monocryl stitch. The insertion site on the neck was closed with interrupted 4-0 Monocryl suture. Dermabond and sterile dressings were applied. All counts were complete and correct at the end of the case. A chest x-ray in PACU showed no acute complications. The patient tolerated the procedure well. ALBERT REYES /[id number] PAULO
--- NOTE | 2021-01-17 12:40 | CR ---
INDICATION: Port-A-Cath placement TECHNIQUE: Intraoperative C-arm fluoroscopy. IMPRESSION: Intraoperative C-arm fluoroscopy was provided. Fluoroscopy time 30.1 seconds seconds. Two images were captured. Dictated by Xavier Vines MD @ 01/17/2021 12:39:[address] Xavier Vines @ Jan 17 2021 12:39PM
== END 2021-01-17 10:05 | disposition home or self-care (01) ==
LOC: MW.SDS 06:43
PROVIDERS: ATTEND Surgery
DX: C53.9 Malignant neoplasm of cervix uteri, unspecified (principal); J44.9 Chronic obstructive pulmonary disease, unspecified; E66.9 Obesity, unspecified; Z68.33 Body mass index [BMI] 33.0-33.9, adult; F17.210 Nicotine dependence, cigarettes, uncomplicated; Z88.6 Allergy status to analgesic agent; Z86.16 Personal history of COVID-19
CPT/HCPCS: 36561; 71045; 76000; A9270; C1788; J0690; J1642; J1885; J2250; J2405; J2704; J3490; J7120; 00532; J3010; Q9966

== ENCOUNTER 2021-07-05 10:39 | Emergency (ER) | payer MEDICAID ==
[2021-07-05] MEDS ORDERED: Diazepam 5 MG Tab PO ONE (11:16)
[2021-07-05] MEDS ORDERED: Ketorolac 30 MG/ML SDV IM ONE (11:17)
--- NOTE | 2021-07-05 11:18 | EDM.PDOC ---
ED HPI GENERAL MEDICAL PROBLEM - General Chief Complaint: Lower Extremity Injury/Pain Stated Complaint: Bilateral leg pain after chemo Time Seen by Provider: 07/05/21 11:04 - History of Present Illness INITIAL COMMENTS - FREE TEXT/NARRATIVE: History of present illness: The patient claims it for about 2 days she cannot walk because of severe pain that started in her right sciatic area and radiates from her back down her posterior thigh. It is incredibly worse when she tries to move or bear weight. The pain is similar to what she had a month and a half ago on the left side. The left-sided pain gradually over a month and a half got better and tolerable until this new right pain began to bother her again. Previous to this she had not had any significant major back problems. The patient has no loss of control of bowel or bladder. She has no loss of sensation in her buttocks or lower extremities. She has no loss of movement over lower extremity remedies but cannot walk because the pain is so bad. The patient has a history of cervical cancer with lymphatic involvement. Her last radiation and chemotherapy were more than a month ago. There is no history of recent trauma. 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 Review of systems: As per history of present illness and below otherwise all systems reviewed and negative. Past medical history: As per history of present illness and as reviewed below otherwise noncontributory. Surgical history: As per history of present illness and as reviewed below otherwise noncontributory. Social history: No reported history of drug or alcohol abuse. Family history: As per history of present illness and as reviewed below otherwise noncontributory. Physical exam: Constitutional - well developed, well-nourished and in no acute distress HEENT - normocephalic, no evidence of trauma - external nose and mouth normal - no mass in neck and no JVD - mucosae moist EYES - full EOM, PERRL, no icterus - no evidence of inflammation, injection, or drainage Respiratory - no respiratory distress, equal bilateral expansion, lungs clear to auscultation and no abnormal lung sounds Cardiovascular - Regular Rhythm with S1 and S2 appreciated and no murmur, gallop or rub. GI - abdomen soft without distension or organomegaly - normal bowel sounds - no guard or rebound Musculoskeletal tender in the lumbar spine from highest and lowest lumbar and tender in the posterior SIJ of the right. Straight leg raise on the right to 45 degrees causes some pain on the right side of her back and hip. Straight leg raise on the left causes milder pain but the pains on the left side. Otherwise no gross deformity of long bones or joints - no tenderness, swelling or edema Neurologic - Alert and oriented times four - CN II-XII grossly intact - motor sensory and coordination symmetrically normal Psychiatric - appropriate mood and affect with normal thought content Hematologic - No petechiae or purpura - mucosa appropriate color and sclera not pale - normal nail bed color and refill Integument - no rash or evidence of trauma - normal turgor Diagnostics: [] Therapeutics: [] Impression: [] Plan: [] Definitive disposition and diagnosis as appropriate pending reevaluation and review of above. Bilateral Leg Pain Score (Numeric/FACES): 9 - Related Data Allergies Allergy/AdvReac Type Severity Reaction Status Date / Time codeine Allergy Rash Verified 07/05/21 10:58 Home Meds: Home Meds Magnesium Oxide [Magnesium] 400 mg PO BID 06/22/21 [History] Acetaminophen/oxyCODONE [Percocet 325-10 MG] 1 tab PO Q6H PRN #14 tab 07/05/21 [Rx] Cyclobenzaprine [Flexeril] 10 mg PO TID PRN #20 tab 07/05/21 [Rx] Past Medical History HEENT History: Reports: Hard of Hearing, Other (See Below) Other HEENT History: uses reading glasses, has upper and lower dentures, may have hearing aides but doesn't wear them Cardiovascular History: Reports: Other (See Below) Other Cardiovascular History: hx of rheumatic fever as a child- ? 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: Musculoskeletal History: Reports: Fracture Other Musculoskeletal History: hx of fx rib and right elbow (not treated) Neurological History: Reports: None Psychiatric History: Reports: None Endocrine/Metabolic History: Reports: Obesity/BMI 30+ Hematologic History: Reports: None Immunologic History: Reports: None Oncologic (Cancer) History: Reports: Cervix Other Oncologic History: has finished Chemotherapy Dermatologic History: Reports: None - Infectious Disease History Infectious Disease History: Reports: Chicken Pox, Measles - Past Surgical History Head Surgeries/Procedures: Reports: None Cardiovascular Surgical History: Reports: None Respiratory Surgical History: Reports: None GI Surgical History: Reports: Hernia, Abdominal Other GI Surgeries/Procedures: hx of Ventral Hernia repair Female Surgical History: Reports: Tubal Ligation Neurological Surgical History: Reports: None Musculoskeletal Surgical History: Reports: None Social & Family History - Family History Family Medical History: No Pertinent Family History - Tobacco Use Second Hand Smoke Exposure: No - Caffeine Use Caffeine Use: Reports: None - Recreational Drug Use Recreational Drug Use: No Review of Systems - Review of Systems Review Of Systems: Comprehensive ROS is negative, except as noted in HPI. ED EXAM, GENERAL - Physical Exam Exam: See Below Free Text/Narrative:: My physical exam is in the HPI Course - Vital Signs Last Recorded V/S: Last Vital Signs Temp 36.5 C 07/05/21 10:47 Pulse 84 07/05/21 10:47 Resp 20 07/05/21 10:47 BP 138/89 07/05/21 10:47 Pulse Ox 95 07/05/21 10:47 - Orders/Labs/Meds Meds: Medications Discontinued Medications Generic Name Dose Route Start Last Admin Trade Name Michaelq PRN Reason Stop Dose Admin Diazepam 5 mg 07/05/21 11:16 07/05/21 11:21 Diazepam 5 Mg Tab PO 07/05/21 11:17 5 mg ONETIME ONE Administration Ketorolac Tromethamine 30 mg 07/05/21 11:17 07/05/21 11:21 Ketorolac 30 Mg/Ml Sdv IM 07/05/21 11:18 30 mg ONETIME ONE Administration - Re-Assessments/Exams Free Text/Narrative Re-Assessment/Exam: 07/05/21 12:22 Patient feels better, has a ride home, She understands she must return emergenctly if cauda equina symptoms develop. She will follo with primary care and try to have further investigation (egMRI) before that happens Departure - Departure Time of Disposition: 12:26 Disposition: Home, Self-Care 01 Condition: Good Clinical Impression: Discogenic lumbar pain - Discharge Information Instructions: Acute Back Pain, Adult Referrals: Daina Dowell DO [Primary Care Provider] - Forms: ED Department Discharge Additional Instructions: Return immediately if you lose control of bowel or bladder, movement or sensation in legs or feet,or feeling in your buttocks [facility] [address] [place] [address] [facility] [address] [place] [address] The following information is given to patients seen in the emergency department who are being discharged to home. This information is to outline your options for follow-up care. We provide all patients seen in our emergency department with a follow-up referral. The need for follow-up, as well as the timing and circumstances, are variable depending upon the specifics of your emergency department visit. If you don't have a primary care physician on staff, we will provide you with a referral. We always advise you to contact your personal physician following an emergency department visit to inform them of the circumstance of the visit and for follow-up with them and/or the need for any referrals to a consulting specialist. The emergency department will also refer you to a specialist when appropriate. This referral assures that you have the opportunity for follow-up care with a specialist. All of these measure are taken in an effort to provide you with optimal care, which includes your follow-up. Under all circumstances we always encourage you to contact your private physician who remains a resource for coordinating your care. When calling for follow-up care, please make the office aware that this follow-up is from your recent emergency room visit. If for any reason you are refused follow-up, please contact the [facility] at and asked to speak to the emergency department charge nurse. Sepsis Event Note (ED) - Evaluation Sepsis Screening Result: No Definite Risk - Focused Exam Vital Signs: Vital Signs Temp Pulse Resp BP Pulse Ox 07/05/21 10:47 36.5 C 84 20 138/89 95
--- NOTE | 2021-07-05 12:13 | CR ---
INDICATION: History of cervical cancer. COMPARISON: Single AP radiograph pelvis July 05, 2021. TECHNIQUE: Three-view study lumbosacral spine. FINDINGS: Disc space narrowing and disc degeneration at L4-5. Facet joint arthritis bilateral at L3-4. No evidence of fracture dislocation. No evidence of spondylolysis or spondylolisthesis. IMPRESSION: 1. No acute fracture or dislocation. 2. Disk space narrowing and disc degeneration at L4-5. Dictated by Mohit Smith MD @ 07/05/2021 12:12:32 PM (Electronically Signed)
--- NOTE | 2021-07-05 12:15 | CR ---
INDICATION: Difficult to move the right leg; history of cervical cancer; finished chemotherapy last month. TECHNIQUE: Single AP radiograph pelvis. FINDINGS: No bone or soft tissue abnormalities. IMPRESSION: Negative radiographic examination of the pelvis. Dictated by Mohit Smith MD @ 07/05/2021 12:13:37 PM (Electronically Signed)
== END 2021-07-05 12:38 | disposition home or self-care (01) ==
LOC: MW.ED 10:39
DX: M51.86 Other intervertebral disc disorders, lumbar region (principal); J44.9 Chronic obstructive pulmonary disease, unspecified; E66.9 Obesity, unspecified; Z68.28 Body mass index [BMI] 28.0-28.9, adult; Z88.5 Allergy status to narcotic agent; Z79.899 Other long term (current) drug therapy
CPT/HCPCS: 72100; 72170; 96372; 99283; A9270; J1885

== ENCOUNTER 2023-09-20 14:57 | Emergency (ER) | payer BC ==
[2023-09-20] MEDS ORDERED: Sodium Chloride 0.9% 10 ML Syringe FLUSH PRN (15:44)
[2023-09-20] MEDS ORDERED: Sodium Chloride 0.9% 2.5 ML Syringe FLUSH PRN (15:44)
[2023-09-20] MEDS ORDERED: Acetaminophen/HYDROcodone 325-5 MG Tab PO ONE (15:47)
[2023-09-20 16:25] LABS: BASOPHILS ABSOLUTE AUTO 0.07 K/uL (0.00-0.20); BASOPHILS PERCENT AUTO 1.2 % (0.0-1.0); EOSINOPHILS ABSOLUTE AUTO 0.23 K/uL (0.00-0.45); EOSINOPHILS PERCENT AUTO 3.9 % (0.0-6.0); HEMATOCRIT 40.4 % (37.0-47.0); HEMOGLOBIN 13.9 g/dL (12.0-16.0); IMMATURE GRAN ABSOLUTE AUTO 0.01 K/uL (0.00-0.05); IMMATURE GRAN PERCENT AUTO 0.2 % (0.0-0.4); LYMPHOCYTES ABSOLUTE AUTO 0.97 K/uL (1.00-4.80); LYMPHOCYTES PERCENT AUTO 16.3 % (24.0-44.0); MEAN CORPUSCULAR HEMOGLOBIN 31.4 pg (28.0-32.0); MEAN CORPUSCULAR HGB CONC 34.4 g/dL (32.0-36.0); MEAN CORPUSCULAR VOLUME 91.4 fL (83.0-99.0); MEAN PLATELET VOLUME 9.1 fL (9.4-12.3); MONOCYTES ABSOLUTE AUTO 0.63 K/uL (0.00-0.80); MONOCYTES PERCENT AUTO 10.6 % (0.0-8.0); NEUTROPHILS ABSOLUTE AUTO 4.05 K/uL (1.80-7.70); NEUTROPHILS PERCENT AUTO 67.8 % (41.0-71.0); PLATELET COUNT,PLT 205 K/uL (150-400); RED BLOOD CELL COUNT 4.42 M/uL (4.10-5.30); WHITE BLOOD CELL COUNT,WBC 5.96 K/uL (3.9-11.3)
[2023-09-20 16:40] LABS: INR 1.01 (0.86-1.11)
[2023-09-20 17:10] LABS: A/G RATIO 1.1 (0.9-1.6); ALBUMIN 3.6 g/dL (3.4-5.0); BILIRUBIN TOTAL 0.3 mg/dL (0.2-1.0); CALCIUM 9.2 mg/dL (8.5-10.1); CARBON DIOXIDE,CO2 27.5 mmol/L (21.0-32.0); CREATININE 0.8 mg/dL (0.6-1.0); EST CRCL DRUG DOSING (CG) 78.15 mL/min; POTASSIUM,K 4.2 mmol/L (3.5-5.1); PROTEIN TOTAL,TP 6.9 g/dL (6.4-8.2)
[2023-09-20] MEDS ORDERED: Iopamidol 755 MG/ML 500 ML Multipack Bottle IVPUSH STA (18:25)
[2023-09-20] MEDS ORDERED: Ondansetron 4 MG/2 ML SDV IVPUSH ONE (19:32)
[2023-09-20] MEDS ORDERED: Ketorolac 30 MG/ML SDV IVPUSH ONE (19:32)
[2023-09-20] MEDS ORDERED: HYDROmorphone 1 MG/ML Syringe IVPUSH ONE (19:32)
== END 2023-09-20 20:56 | disposition home or self-care (01) ==
LOC: MW.ED 14:57
DX: G89.3 Neoplasm related pain (acute) (chronic) (principal); M54.6 Pain in thoracic spine; F17.210 Nicotine dependence, cigarettes, uncomplicated; J44.9 Chronic obstructive pulmonary disease, unspecified; E66.9 Obesity, unspecified; Z88.5 Allergy status to narcotic agent; Z79.899 Other long term (current) drug therapy; Z68.24 Body mass index [BMI] 24.0-24.9, adult
CPT/HCPCS: 36415; 71045; 71275; 80053; 83690; 85025; 85610; 96374; 96375; 99284; A9270; J1170; J1885; J2405; J3490; Q9967

== ENCOUNTER 2023-10-15 15:24 | Emergency (ER) | payer BC, MEDICAID ==
[2023-10-15] MEDS ORDERED: Acetaminophen/HYDROcodone 325-5 MG Tab PO ONE (15:59)
== END 2023-10-15 16:27 | disposition home or self-care (01) ==
LOC: MW.ED 15:24
DX: G89.3 Neoplasm related pain (acute) (chronic) (principal); C79.9 Secondary malignant neoplasm of unspecified site; J44.9 Chronic obstructive pulmonary disease, unspecified; E66.9 Obesity, unspecified; Z68.25 Body mass index [BMI] 25.0-25.9, adult; Z79.899 Other long term (current) drug therapy; Z88.5 Allergy status to narcotic agent
CPT/HCPCS: 99283; A9270

== ENCOUNTER 2023-10-19 13:44 | Emergency (ER) | payer MEDICAID ==
[2023-10-19] MEDS: Acetaminophen/HYDROcodone 325-5 MG Tab PO STA (15:52)
== END 2023-10-19 16:13 | disposition home or self-care (01) ==
LOC: MW.ED 13:44
DX: G89.3 Neoplasm related pain (acute) (chronic) (principal); M54.6 Pain in thoracic spine; J44.9 Chronic obstructive pulmonary disease, unspecified; E66.9 Obesity, unspecified; F17.210 Nicotine dependence, cigarettes, uncomplicated; Z68.24 Body mass index [BMI] 24.0-24.9, adult; Z79.899 Other long term (current) drug therapy
CPT/HCPCS: 99283; A9270

== ENCOUNTER 2024-01-10 12:02 | Observation (INO) | payer SELFPAY ==
[2024-01-10] MEDS: Sodium Chloride 0.9% 1,000 ML IV ONE (12:42)
[2024-01-10] MEDS: Lidocaine 2% Viscous Solution 15 ML UD PO ONE (12:42)
[2024-01-10] MEDS: Albuterol/Ipratropium 3.0-0.5 MG/3 ML Neb Soln NEB ONE (12:42)
[2024-01-10] MEDS: Ondansetron 4 MG/2 ML SDV IVPUSH ONE (12:42)
[2024-01-10 12:51] LABS: HEMATOCRIT 18.4 % (37.0-47.0); HEMOGLOBIN 6.6 g/dL (12.0-16.0); MEAN CORPUSCULAR HEMOGLOBIN 33.3 pg (28.0-32.0); MEAN CORPUSCULAR HGB CONC 35.9 g/dL (32.0-36.0); MEAN CORPUSCULAR VOLUME 92.9 fL (83.0-99.0); MEAN PLATELET VOLUME 10.8 fL (9.4-12.3); PLATELET COUNT,PLT 48 K/uL (150-400); RED BLOOD CELL COUNT 1.98 M/uL (4.10-5.30); WHITE BLOOD CELL COUNT,WBC 1.28 K/uL (3.9-11.3)
[2024-01-10 13:17] LABS: A/G RATIO 1.1 (0.9-1.6); ALBUMIN 3.4 g/dL (3.4-5.0); BILIRUBIN TOTAL 0.8 mg/dL (0.2-1.0); CARBON DIOXIDE,CO2 28.5 mmol/L (21.0-32.0); EST CRCL DRUG DOSING (CG) 57.45 mL/min; MAGNESIUM 1.5 mg/dL (1.8-2.4); POTASSIUM,K 3.6 mmol/L (3.5-5.1); PROTEIN TOTAL,TP 6.5 g/dL (6.4-8.2)
[2024-01-10 13:22] LABS: BASOPHILS ABSOLUTE MAN 0.03 K/uL (0.00-0.20); BASOPHILS PERCENT MAN 2 % (0-1); LYMPHOCYTES ABSOLUTE MAN 0.12 K/uL (1.00-4.80); LYMPHOCYTES PERCENT MAN 9 % (24-44); MONOCYTES ABSOLUTE MAN 0.06 K/uL (0.00-0.80); MONOCYTES PERCENT MAN 5 % (0-8); SEG NEUTROPHILS ABSOLUTE MAN 1.08 K/uL (1.80-7.70); SEG NEUTROPHILS PERCENT MAN 84 % (41-71)
[2024-01-10 13:23] LABS: PLATELET COUNT ESTIMATE DECREASED
[2024-01-10 13:25] LABS: CORONAVIRUS COVID-19 NAA NEGATIVE (NEGATIVE); INFLUENZA A NAA NEGATIVE (NEGATIVE); INFLUENZA B NAA NEGATIVE (NEGATIVE); RESPIRATORY SYNCYTIAL VIR NAA NEGATIVE (NEGATIVE)
[2024-01-10] MEDS: Magnesium Sulfate/Water 2 GM in Premix Bag 1 BAG IV ONE (13:35)
[2024-01-10] MEDS ORDERED: Acetaminophen 325 MG Tab PO PRN (14:32)
[2024-01-10] MEDS ORDERED: Polyethylene Glycol 3350 Powder 17 GM Packet PO PRN (14:32)
[2024-01-10] MEDS ORDERED: Morphine 15 MG Tab PO SCH (16:00)
[2024-01-10] MEDS: Nicotine 14 MG/24 Hr Patch TRDERM SCH (16:23)
[2024-01-10] MEDS ORDERED: Acetaminophen/HYDROcodone 325-5 MG Tab PO PRN (16:30)
[2024-01-10] MEDS: Sodium Chloride 1 GM Tab PO ONE (17:14)
[2024-01-10] MEDS: Morphine 15 MG Tab.ER PO SCH (17:14)
[2024-01-10] MEDS: Ondansetron 4 MG/2 ML SDV IVPUSH PRN (18:11)
[2024-01-10 21:05] LABS: HEMATOCRIT 20.9 % (37.0-47.0); HEMOGLOBIN 7.6 g/dL (12.0-16.0)
[2024-01-10] MEDS: oxyCODONE 5 MG Tab PO PRN (22:23)
[2024-01-11 00:32] LABS: APPEARANCE,URINE CLEAR; BILIRUBIN,URINE NEGATIVE (NEGATIVE); COLOR,URINE YELLOW; GLUCOSE,URINE 250 mg/dL (NEGATIVE); KETONES,URINE NEGATIVE (NEGATIVE); LEUKOCYTE ESTERASE,URINE NEGATIVE (NEGATIVE); NITRITE,URINE NEGATIVE (NEGATIVE); OCCULT BLOOD,URINE NEGATIVE (NEGATIVE); PROTEIN,URINE NEGATIVE (NEGATIVE); UROBILINOGEN,URINE 0.2 EU/dL (<2.0)
[2024-01-11 06:48] LABS: HEMATOCRIT 20.3 % (37.0-47.0); HEMOGLOBIN 7.4 g/dL (12.0-16.0); MEAN CORPUSCULAR HEMOGLOBIN 33.5 pg (28.0-32.0); MEAN CORPUSCULAR HGB CONC 36.5 g/dL (32.0-36.0); MEAN CORPUSCULAR VOLUME 91.9 fL (83.0-99.0); MEAN PLATELET VOLUME 11.6 fL (9.4-12.3); PLATELET COUNT,PLT 28 K/uL (150-400); RED BLOOD CELL COUNT 2.21 M/uL (4.10-5.30)
[2024-01-11 06:53] LABS: ALBUMIN 2.9 g/dL (3.4-5.0); BILIRUBIN TOTAL 0.9 mg/dL (0.2-1.0); CALCIUM 8.5 mg/dL (8.5-10.1); CARBON DIOXIDE,CO2 29.5 mmol/L (21.0-32.0); CREATININE 0.8 mg/dL (0.6-1.0); EST CRCL DRUG DOSING (CG) 71.81 mL/min; PROTEIN TOTAL,TP 5.8 g/dL (6.4-8.2)
[2024-01-11 07:20] LABS: WHITE BLOOD CELL COUNT,WBC 0.84 K/uL (3.9-11.3)
[2024-01-11 07:39] LABS: SEG NEUTROPHILS ABSOLUTE MAN 0.55 K/uL (1.80-7.70); SEG NEUTROPHILS PERCENT MAN 66 % (41-71)
[2024-01-11 07:40] LABS: BASOPHILS ABSOLUTE MAN 0.02 K/uL (0.00-0.20); BASOPHILS PERCENT MAN 2 % (0-1); LYMPHOCYTES ABSOLUTE MAN 0.16 K/uL (1.00-4.80); LYMPHOCYTES PERCENT MAN 19 % (24-44); MONOCYTES ABSOLUTE MAN 0.07 K/uL (0.00-0.80); MONOCYTES PERCENT MAN 8 % (0-8)
[2024-01-11 07:42] LABS: BAND ABSOLUTE MAN 0.04; BAND PERCENT MAN 5 %
== END 2024-01-11 12:50 | disposition home or self-care (01) ==
LOC: MW.ED 12:02 → MW.MS 13:59
PROVIDERS: ADMIT Internal Medicine; ATTEND Internal Medicine
DX: D61.818 Other pancytopenia (principal); D69.6 Thrombocytopenia, unspecified; D64.9 Anemia, unspecified; C34.90 Malignant neoplasm of unspecified part of unspecified bronchus or lung; J44.9 Chronic obstructive pulmonary disease, unspecified; E87.1 Hypo-osmolality and hyponatremia; E83.42 Hypomagnesemia; G89.29 Other chronic pain; E66.9 Obesity, unspecified; F17.210 Nicotine dependence, cigarettes, uncomplicated; Z68.30 Body mass index [BMI] 30.0-30.9, adult; Z88.5 Allergy status to narcotic agent; Z79.85 Long-term (current) use of injectable non-insulin antidiabetic drugs; Z79.891 Long term (current) use of opiate analgesic; Z79.899 Other long term (current) drug therapy; Z79.60 Long term (current) use of unspecified immunomodulators and immunosuppressants; Z20.822 Contact with and (suspected) exposure to COVID-19
CPT/HCPCS: 0241U; 36415; 36430; 71046; 80053; 81003; 83735; 84484; 85014; 85018; 85025; 86850; 86900; 86901; 86920; 93005; 94640; 96361; 96374; 96375; 99285; A9270; J2405; J3475; J7030; P9016; 93010; 96376; 99222; 99238; 99284; G0378; J7620-GY

== ENCOUNTER 2025-01-17 14:37 | Emergency (ER) | payer MEDICAID ==
[2025-01-17] MEDS ORDERED: Sodium Chloride 0.9% 10 ML Syringe FLUSH PRN (15:04)
[2025-01-17] MEDS ORDERED: Sodium Chloride 0.9% 20 ML SDV IV PRN (15:04)
[2025-01-17] MEDS ORDERED: Sodium Chloride 0.9% 2.5 ML Syringe FLUSH PRN (15:04)
[2025-01-17] MEDS: Sodium Chloride 0.9% 1,000 ML IV ONE (15:10)
[2025-01-17] MEDS: chlorproMAZINE 50 MG/2 ML Amp IM ONE (15:18)
[2025-01-17 15:29] LABS: HEMOGLOBIN 10.2 g/dL (12.0-16.0); MEAN CORPUSCULAR HEMOGLOBIN 35.4 pg (28.0-32.0); MEAN CORPUSCULAR HGB CONC 36.4 g/dL (32.0-36.0); MEAN CORPUSCULAR VOLUME 97.2 fL (83.0-99.0); MEAN PLATELET VOLUME 11.1 fL (9.4-12.3); PLATELET COUNT,PLT 57 K/uL (150-400); RED BLOOD CELL COUNT 2.88 M/uL (4.10-5.30); WHITE BLOOD CELL COUNT,WBC 3.59 K/uL (3.9-11.3)
[2025-01-17 15:34] LABS: INR 1.21 (0.86-1.11); PTT,PARTIAL THROMBOPLSTIN TIME 31.9 SEC (23.9-30.7)
[2025-01-17 15:48] LABS: A/G RATIO 0.8 (0.9-1.6); ALANINE AMINOTRANSFERASE,ALT 15 IU/L (14-63); ALBUMIN 2.6 g/dL (3.4-5.0); ALKALINE PHOSPHATASE 79 U/L (46-116); ASPARTATE AMNIOTRANSFERASE,AST 7 IU/L (15-37); BILIRUBIN TOTAL 1.5 mg/dL (0.2-1.0); BLOOD UREA NITROGEN,BUN 13 mg/dL (7.0-18.0); CALCIUM 8.5 mg/dL (8.5-10.1); CARBON DIOXIDE,CO2 27.1 mmol/L (21.0-32.0); CHLORIDE,CL 90 mmol/L (98-107); CREATININE 0.9 mg/dL (0.6-1.0); GLUCOSE RANDOM 180 mg/dL (74-106); LIPASE 8 U/L (16-77); POTASSIUM,K 3.1 mmol/L (3.5-5.1); PRO B-TYPE NATRIUR PEPT,BNPPRO 404 pg/mL (0-125); SODIUM,NA 127 mmol/L (136-145)
[2025-01-17 15:50] LABS: ESTIMATED GFR 72 mL/min (>60); SEG NEUTROPHILS ABSOLUTE MAN 2.73 K/uL (1.80-7.70); SEG NEUTROPHILS PERCENT MAN 76 % (41-71)
[2025-01-17 15:51] LABS: BAND ABSOLUTE MAN 0.47; BAND PERCENT MAN 13 %; EOSINOPHILS ABSOLUTE MAN 0.04 K/uL (0.00-0.45); EOSINOPHILS PERCENT MAN 1 % (0-6); LYMPHOCYTES ABSOLUTE MAN 0.07 K/uL (1.00-4.80); LYMPHOCYTES PERCENT MAN 2 % (24-44); METAMYELOCYTE ABSOLUTE MAN 0.07; METAMYELOCYTE PERCENT MAN 2 %; MONOCYTES ABSOLUTE MAN 0.18 K/uL (0.00-0.80); MONOCYTES PERCENT MAN 5 % (0-8); MYELOCYTE ABSOLUTE MAN 0.04; MYELOCYTE PERCENT MAN 1 %
[2025-01-17] MEDS: oxyCODONE 5 MG Tab PO ONE (16:45)
[2025-01-17] MEDS: Potassium Chloride 10% 20 MEQ/15 ML Soln 15 ML UD Cup PO ONE (17:40)
== END 2025-01-17 17:46 | disposition home or self-care (01) ==
LOC: MW.ED 14:37
DX: C34.90 Malignant neoplasm of unspecified part of unspecified bronchus or lung (principal); E87.6 Hypokalemia; E87.1 Hypo-osmolality and hyponatremia; J44.9 Chronic obstructive pulmonary disease, unspecified; E66.9 Obesity, unspecified; Z87.891 Personal history of nicotine dependence; Z79.899 Other long term (current) drug therapy; Z88.5 Allergy status to narcotic agent
CPT/HCPCS: 36415; 71045; 80053; 83690; 83880; 84484; 85025; 85610; 85730; 93005; 96360; 96361; 96372; 99285; A9270; J3230; 93010; 99284

== ENCOUNTER 2025-01-20 20:05 | Inpatient (IN) | payer MEDICAID ==
[2025-01-20 20:55] LABS: HEMATOCRIT 31.3 % (37.0-47.0); HEMOGLOBIN 10.8 g/dL (12.0-16.0); MEAN CORPUSCULAR HEMOGLOBIN 35.1 pg (28.0-32.0); MEAN CORPUSCULAR HGB CONC 34.5 g/dL (32.0-36.0); MEAN CORPUSCULAR VOLUME 101.6 fL (83.0-99.0); MEAN PLATELET VOLUME 11.5 fL (9.4-12.3); PLATELET COUNT,PLT 85 K/uL (150-400); RED BLOOD CELL COUNT 3.08 M/uL (4.10-5.30); WHITE BLOOD CELL COUNT,WBC 15.71 K/uL (3.9-11.3)
[2025-01-20] MEDS: Morphine 4 MG/ML Syringe IVPUSH ONE (21:04)
[2025-01-20] MEDS: Sodium Chloride 0.9% 1,000 ML IV ONE ×2 (21:04→21:54)
[2025-01-20 21:16] LABS: A/G RATIO 0.7 (0.9-1.6); ALANINE AMINOTRANSFERASE,ALT 111 IU/L (14-63); ALBUMIN 2.4 g/dL (3.4-5.0); ALKALINE PHOSPHATASE 113 U/L (46-116); ASPARTATE AMNIOTRANSFERASE,AST 177 IU/L (15-37); BILIRUBIN TOTAL 2.1 mg/dL (0.2-1.0); BLOOD UREA NITROGEN,BUN 26 mg/dL (7.0-18.0); CALCIUM 8.3 mg/dL (8.5-10.1); CARBON DIOXIDE,CO2 23.2 mmol/L (21.0-32.0); CHLORIDE,CL 91 mmol/L (98-107); CREATININE 2.5 mg/dL (0.6-1.0); GLUCOSE RANDOM 111 mg/dL (74-106); LIPASE 8 U/L (16-77); MAGNESIUM 1.2 mg/dL (1.8-2.4); POTASSIUM,K 4.4 mmol/L (3.5-5.1); PROTEIN TOTAL,TP 5.7 g/dL (6.4-8.2); SODIUM,NA 129 mmol/L (136-145)
[2025-01-20 21:17] LABS: ESTIMATED GFR 21 mL/min (>60)
[2025-01-20 21:27] LABS: BASOPHILS PERCENT MAN 0 % (0-1); EOSINOPHILS PERCENT MAN 0 % (0-6); LYMPHOCYTES PERCENT MAN 0 % (24-44); MONOCYTES ABSOLUTE MAN 0.79 K/uL (0.00-0.80); MONOCYTES PERCENT MAN 5 % (0-8); SEG NEUTROPHILS ABSOLUTE MAN 14.92 K/uL (1.80-7.70); SEG NEUTROPHILS PERCENT MAN 95 % (41-71)
[2025-01-20] MEDS: Cefepime 1 GM in Sodium Chloride 0.9% 50 ML IV ONE (21:48)
[2025-01-20] MEDS: VANCOmycin 1 GM in Sodium Chloride 0.9% 250 ML IV ONE (22:39)
[2025-01-20] MEDS: Magnesium Sulfate 4 GM/100 mL 4 GM in Premix Bag 1 BAG IV ONE (22:41)
[2025-01-21] MEDS: Norepinephrine Bit/D5W Premix 250 ML IV SCH (00:03)
[2025-01-21] MEDS: Morphine 2 MG/ML SYRINGE IVPUSH PRN (01:01)
[2025-01-21 01:23] LABS: APPEARANCE,URINE SLT CLOUDY; GLUCOSE,URINE NEGATIVE (NEGATIVE); KETONES,URINE TRACE mg/dL (NEGATIVE); LEUKOCYTE ESTERASE,URINE NEGATIVE (NEGATIVE); NITRITE,URINE POSITIVE (NEGATIVE); OCCULT BLOOD,URINE TRACE-INTACT (NEGATIVE); PH,URINE 5.5 (5.0-8.0); PROTEIN,URINE 100 mg/dL (NEGATIVE)
[2025-01-21 01:26] LABS: BILIRUBIN,URINE MODERATE (NEGATIVE)
[2025-01-21 01:30] LABS: BACTERIA,URINE 1+ (NEGATIVE); EPITHELIAL CELLS,URINE FEW (NONE-FEW); MUCUS,URINE MODERATE (NONE-MOD)
[2025-01-21 01:31] LABS: COLOR,URINE DARK YELLOW
[2025-01-21] MEDS: Sodium Chloride 0.9% 1,000 ML IV SCH (01:49)
[2025-01-21] MEDS: Azithromycin 500 MG in Sodium Chloride 0.9% 250 ML IV SCH (01:49)
[2025-01-21] MEDS ORDERED: Cefepime 2 GM in Sodium Chloride 0.9% 50 ML IV SCH (06:00)
[2025-01-21 06:06] LABS: BASOPHILS PERCENT AUTO 0.4 % (0.0-1.0); HEMATOCRIT 29.7 % (37.0-47.0); IMMATURE GRAN ABSOLUTE AUTO 0.41 K/uL (0.00-0.05); IMMATURE GRAN PERCENT AUTO 1.7 % (0.0-0.4); LYMPHOCYTES PERCENT AUTO 0.8 % (24.0-44.0); MEAN CORPUSCULAR HEMOGLOBIN 34.2 pg (28.0-32.0); MEAN CORPUSCULAR HGB CONC 33.7 g/dL (32.0-36.0); MEAN CORPUSCULAR VOLUME 101.7 fL (83.0-99.0); MEAN PLATELET VOLUME 11.3 fL (9.4-12.3); MONOCYTES ABSOLUTE AUTO 1.32 K/uL (0.00-0.80); MONOCYTES PERCENT AUTO 5.6 % (0.0-8.0); NEUTROPHILS ABSOLUTE AUTO 21.55 K/uL (1.80-7.70); NEUTROPHILS PERCENT AUTO 91.5 % (41.0-71.0); PLATELET COUNT,PLT 78 K/uL (150-400); RED BLOOD CELL COUNT 2.92 M/uL (4.10-5.30); WHITE BLOOD CELL COUNT,WBC 23.58 K/uL (3.9-11.3)
[2025-01-21 06:55] LABS: A/G RATIO 0.7 (0.9-1.6); ALBUMIN 2.2 g/dL (3.4-5.0); CALCIUM 7.5 mg/dL (8.5-10.1); CARBON DIOXIDE,CO2 24.6 mmol/L (21.0-32.0); CREATININE 1.8 mg/dL (0.6-1.0); EST CRCL DRUG DOSING (CG) 29.16 mL/min; POTASSIUM,K 4.2 mmol/L (3.5-5.1); PROTEIN TOTAL,TP 5.3 g/dL (6.4-8.2)
[2025-01-21] MEDS: Cefepime 1 GM in Sodium Chloride 0.9% 50 ML IV SCH (09:02)
[2025-01-21] MEDS: VANCOmycin 750 MG in Sodium Chloride 0.9% 250 ML IV SCH (10:22)
[2025-01-22] MEDS: Morphine 2 MG/ML SYRINGE IVPUSH PRN (08:42)
[2025-01-22] MEDS: Midodrine 5 MG Tab PO STA (08:43)
[2025-01-22] MEDS: Midodrine 5 MG Tab PO SCH (13:09)
[2025-01-22] MEDS: Lidocaine 5% Oint 35.44 GM Tube TOP SCH (16:26)
[2025-01-22] MEDS: LORazepam ORAL Concentrate 1MG/0.5ML U/D SL PRN (22:00)
[2025-01-23] MEDS: Atropine 1% Ophth Soln 5 ML Bottle SL PRN (10:02)
[2025-01-23] MEDS: LORazepam ORAL Concentrate 1MG/0.5ML U/D SL PRN (11:04)
[2025-01-24] MEDS: Morphine 10 MG/0.5 ML Oral Syringe SL PRN (02:39)
[2025-01-24] MEDS: Atropine Sulfate 1% Ophth 2 ML Drops SL PRN (12:20)
[2025-01-25] MEDS: Morphine 10 MG/0.5 ML Oral Syringe SL PRN (12:07)
[2025-01-26] MEDS ORDERED: NACL IV SCH (10:00)
[2025-01-26] MEDS ORDERED: MORPHINE SULFATE IV SCH (10:00)
[2025-01-26] MEDS: Morphine 50 MG in Sodium Chloride 0.9% 45 ML IV SCH (11:45)
== END 2025-01-27 14:25 | disposition expired | DRG 871 ==
LOC: MW.ED 20:05 → MW.ICU 01-21 00:38 → MW.MS 01-22 18:05
PROVIDERS: ADMIT Internal Medicine; ATTEND Internal Medicine
PROC: 3E03329 Introduction of Other Anti-infective into Peripheral Vein, Percutaneous Approach (ICD-10-PCS; principal; 2025-01-21)
PROC: 3E033XZ Introduction of Vasopressor into Peripheral Vein, Percutaneous Approach (ICD-10-PCS; 2025-01-21)
PROC: 5A0935A Assistance with Respiratory Ventilation, Less than 24 Consecutive Hours, High Flow/Velocity Cannula (ICD-10-PCS; 2025-01-21)
DX: A41.9 Sepsis, unspecified organism (principal); J18.9 Pneumonia, unspecified organism; J96.01 Acute respiratory failure with hypoxia; R65.21 Severe sepsis with septic shock; J44.0 Chronic obstructive pulmonary disease with (acute) lower respiratory infection; Z66 Do not resuscitate; Z51.5 Encounter for palliative care; N17.9 Acute kidney failure, unspecified; R64 Cachexia; C34.90 Malignant neoplasm of unspecified part of unspecified bronchus or lung; C79.31 Secondary malignant neoplasm of brain; Z68.1 Body mass index [BMI] 19.9 or less, adult; E83.42 Hypomagnesemia; H91.90 Unspecified hearing loss, unspecified ear; Z78.1 Physical restraint status; Z79.52 Long term (current) use of systemic steroids; Z79.899 Other long term (current) drug therapy; Z88.5 Allergy status to narcotic agent; Z98.890 Other specified postprocedural states; Z98.51 Tubal ligation status; Z87.891 Personal history of nicotine dependence; Z95.828 Presence of other vascular implants and grafts
CPT/HCPCS: 36415; 70450; 70450-26; 71045; 71045-26; 71250; 71250-26; 74176; 74176-26; 80053; 80202; 81001; 83605; 83690; 83735; 85025; 87040; 87086; 93005; 96361; 96365; 96366; 96367; 96368; 96375; 99283; 99285-25; A9270-GY; J0456; J0692; J2270; J2272; J3370; J3475; J3490; J7030; J7050